=== PATIENT | female | born 1995 | race Caucasian/White ===

== ENCOUNTER 2021-03-08 20:33 | Emergency (ER) | payer OTHER ==
[~2021-03-08 20:33] MED LIST: BENTYL 10MG CAP10 MG PO; IBUPROFEN800 MG PO; NASONEX17 GM; NORCO 5-325 TA1 EACH PO; ZOFRAN 4 MG TAB4 MG PO
== END 2021-03-08 22:15 | disposition home or self-care (01) ==
LOC: ER1 20:33
DX: S19.9XXA Unspecified injury of neck, initial encounter (principal); W22.8XXA Striking against or struck by other objects, initial encounter
CPT/HCPCS: 70490; 84703; 99284